=== PATIENT | male | born 1950 ===

== ENCOUNTER 2020-02-28 12:44 | Emergency (ER) | payer OTHER ==
[~2020-02-28] VITALS: Ht 157.5 cm; Wt 95.7 kg
[2020-02-28] MEDS ORDERED: MICARDIS HCT 81 EACH (13:15)
[2020-02-28] MEDS ORDERED: ELIGARD45 MG (13:15)
[2020-02-28] MEDS ORDERED: COZAAR100 MG (13:15)
[2020-02-28] MEDS ORDERED: METFORMIN HCL500 M3 (13:16)
[2020-02-28] MEDS ORDERED: SIMVASTATIN40 MG (13:16)
[2020-02-28] MEDS ORDERED: TOPROL XL100 M1 (13:16)
[2020-02-28] MEDS ORDERED: TAMS0.4C (13:31)
== END 2020-02-28 20:40 | disposition home or self-care (01) ==
LOC: ER 12:44
DX: R55 Syncope and collapse (principal)